=== PATIENT | female | born 1960 | race Caucasian/White ===

== ENCOUNTER 2023-06-28 14:29 | Inpatient (IN) | payer SELFPAY ==
[~2023-06-28] VITALS: Ht 160 cm; Wt 78.0 kg
[2023-06-28 14:43] VITALS: BP 134/84
[2023-06-28 15:32] LABS: BASO % 0.4 % (0.0-1.0); EOS % 0.1 % (1.0-4.0); HEMATOCRIT 33.8 % (37.0-47.0); LYMPH # 0.8 10*3/uL (1.3-4.4); LYMPH % 8.6 % (27.0-41.0); MEAN CELL VOLUME 87.1 fl (81.0-99.0); MEAN CORPUSCULAR HGB 27.3 pg (27.0-31.0); MEAN CORPUSCULAR HGB CONC 31.4 g/dl (33.0-37.0); MONO # 0.4 10*3/uL (0.1-1.0); MONO % 4.7 % (3.0-9.0); NEUT # 7.8 10*3/uL (2.3-7.9); NEUT % 85.9 % (47.0-73.0); PLATELET COUNT AUTOMATED 396 10*3/uL (130-400); RED BLOOD COUNT 3.88 10*6/uL (4.10-5.10); RED CELL DISTRI WIDTH 12.7 % (0-14.5); WHITE BLOOD COUNT 9.1 10*3/uL (4.8-10.8)
[2023-06-28 16:08] LABS: ALKALINE PHOSPHATASE 79 U/L (46-116); BUN 7 mg/dl (9-23); CHLORIDE 101 mmol/L (98-107); LIPASE 25 U/L (12-53); POTASSIUM 3.1 mmol/L (3.4-5.1); TOTAL PROTEIN 7.1 gm/dL (6.0-8.0)
[2023-06-28 16:11] LABS: SGPT/ALT < 7 U/L (5-49)
[2023-06-28 17:52] VITALS: BP 139/69
[2023-06-28 21:01] VITALS: BP 144/81
[2023-06-28] MEDS ORDERED: TOPCARE OMEPRAZ20 MG PO (23:15)
[2023-06-28] MEDS ORDERED: VENLAFAXINE HYD75 M3 PO (23:16)
[2023-06-28] MEDS ORDERED: LOPRESSOR25 MG PO (23:16)
[2023-06-28] MEDS ORDERED: BENICAR20 MG PO (23:17)
[2023-06-28 23:20] VITALS: BP 147/84
[2023-06-29] VITALS (10 sets, daily range): BP systolic 123–144; BP diastolic 57–78
[2023-06-29 06:02] LABS: ALKALINE PHOSPHATASE 67 U/L (46-116); BUN 7 mg/dl (9-23); CHLORIDE 107 mmol/L (98-107); CHOLESTEROL 97 mg/dL (<200); LDL CHOLESTEROL 50 mg/dL (9-159); POTASSIUM 3.6 mmol/L (3.4-5.1); TOTAL PROTEIN 5.9 gm/dL (6.0-8.0); TRIGLYCERIDES 93 mg/dl (<150)
[2023-06-29 06:03] LABS: SGPT/ALT < 7 U/L (5-49)
[2023-06-29 06:04] LABS: BASO # 0.1 10*3/uL (0.0-0.1); BASO % 0.5 % (0.0-1.0); EOS % 0.2 % (1.0-4.0); HEMATOCRIT 34.8 % (37.0-47.0); LYMPH # 0.7 10*3/uL (1.3-4.4); LYMPH % 5.2 % (27.0-41.0); MEAN CELL VOLUME 86.8 fl (81.0-99.0); MEAN CORPUSCULAR HGB 26.9 pg (27.0-31.0); MONO # 0.5 10*3/uL (0.1-1.0); MONO % 4.3 % (3.0-9.0); NEUT # 11.1 10*3/uL (2.3-7.9); NEUT % 89.2 % (47.0-73.0); PLATELET COUNT AUTOMATED 462 10*3/uL (130-400); RED BLOOD COUNT 4.01 10*6/uL (4.10-5.10); WHITE BLOOD COUNT 12.5 10*3/uL (4.8-10.8)
[2023-06-29 07:34] LABS: VITAMIN D, 25-HYDROXY 31.8 ng/mL (30-100)
[2023-06-30] VITALS: BP 109/67
[2023-06-30 06:01] LABS: ALKALINE PHOSPHATASE 58 U/L (46-116); BUN 7 mg/dl (9-23); CHLORIDE 103 mmol/L (98-107); POTASSIUM 3.7 mmol/L (3.4-5.1); TOTAL PROTEIN 5.7 gm/dL (6.0-8.0)
[2023-06-30 06:03] LABS: SGPT/ALT < 7 U/L (5-49)
[2023-06-30 06:12] LABS: BASO # 0.1 10*3/uL (0.0-0.1); BASO % 0.6 % (0.0-1.0); EOS # 0.1 10*3/uL (0.0-0.4); EOS % 1.4 % (1.0-4.0); HEMATOCRIT 30.5 % (37.0-47.0); LYMPH # 1.4 10*3/uL (1.3-4.4); LYMPH % 15.5 % (27.0-41.0); MEAN CELL VOLUME 88.9 fl (81.0-99.0); MEAN CORPUSCULAR HGB 26.5 pg (27.0-31.0); MEAN CORPUSCULAR HGB CONC 29.8 g/dl (33.0-37.0); MONO # 0.6 10*3/uL (0.1-1.0); MONO % 7.1 % (3.0-9.0); NEUT # 6.6 10*3/uL (2.3-7.9); NEUT % 74.8 % (47.0-73.0); PLATELET COUNT AUTOMATED 410 10*3/uL (130-400); RED BLOOD COUNT 3.43 10*6/uL (4.10-5.10); RED CELL DISTRI WIDTH 13.3 % (0-14.5); WHITE BLOOD COUNT 8.9 10*3/uL (4.8-10.8)
[2023-06-30 08:00] VITALS: BP 118/63
[2023-06-30 12:00] VITALS: BP 110/62
[2023-06-30 16:00] VITALS: BP 129/60
[2023-06-30 20:00] VITALS: BP 127/70
[2023-07-01] VITALS: BP 129/69
[2023-07-01 05:31] LABS: BUN < 5 mg/dl (9-23); CHLORIDE 97 mmol/L (98-107); POTASSIUM 3.6 mmol/L (3.4-5.1)
[2023-07-01 06:10] LABS: BASO % 0.4 % (0.0-1.0); EOS # 0.5 10*3/uL (0.0-0.4); EOS % 6.4 % (1.0-4.0); HEMATOCRIT 30.2 % (37.0-47.0); LYMPH # 1.3 10*3/uL (1.3-4.4); MEAN CORPUSCULAR HGB 27.1 pg (27.0-31.0); MEAN CORPUSCULAR HGB CONC 30.8 g/dl (33.0-37.0); MONO # 0.5 10*3/uL (0.1-1.0); MONO % 6.5 % (3.0-9.0); NEUT # 5.3 10*3/uL (2.3-7.9); NEUT % 68.9 % (47.0-73.0); PLATELET COUNT AUTOMATED 469 10*3/uL (130-400); RED BLOOD COUNT 3.43 10*6/uL (4.10-5.10); RED CELL DISTRI WIDTH 13.1 % (0-14.5); WHITE BLOOD COUNT 7.7 10*3/uL (4.8-10.8)
[2023-07-01 08:00] VITALS: BP 129/71
[2023-07-01 16:00] VITALS: BP 128/63
[2023-07-01 20:00] VITALS: BP 120/58
[2023-07-02] VITALS: BP 115/62
[2023-07-02 06:12] LABS: BASO % 0.7 % (0.0-1.0); EOS # 0.4 10*3/uL (0.0-0.4); EOS % 8.9 % (1.0-4.0); HEMATOCRIT 27.6 % (37.0-47.0); LYMPH # 0.8 10*3/uL (1.3-4.4); MEAN CELL VOLUME 88.5 fl (81.0-99.0); MEAN CORPUSCULAR HGB 26.6 pg (27.0-31.0); MEAN CORPUSCULAR HGB CONC 30.1 g/dl (33.0-37.0); MEAN PLATELET VOLUME 8.7 fl (9.6-12.3); MONO # 0.3 10*3/uL (0.1-1.0); MONO % 7.9 % (3.0-9.0); NEUT # 2.5 10*3/uL (2.3-7.9); NEUT % 60.8 % (47.0-73.0); PLATELET COUNT AUTOMATED 353 10*3/uL (130-400); RED BLOOD COUNT 3.12 10*6/uL (4.10-5.10); RED CELL DISTRI WIDTH 13.1 % (0-14.5)
[2023-07-02 06:29] LABS: CHLORIDE 103 mmol/L (98-107); POTASSIUM 3.9 mmol/L (3.4-5.1)
[2023-07-02 06:33] LABS: BUN < 5 mg/dl (9-23)
[2023-07-02 08:00] VITALS: BP 133/61
[2023-07-02] MEDS ORDERED: HYDROCODONE-AC1 EAC1 PO (11:37)
[2023-07-02 12:00] VITALS: BP 117/57
== END 2023-07-02 13:15 | disposition home or self-care (01) | DRG 329 ==
LOC: ED 14:29 → SDC 06-29 00:43 → ICCU 06-29 03:55 → 5E 07-01 18:19
PROVIDERS: Nurse Practitioner Family; Student in an Organized Health Care Education/Training Program; ADMIT Internal Medicine; ATTEND Internal Medicine
PROC: 0DBN0ZZ Excision of Sigmoid Colon, Open Approach (ICD-10-PCS; principal; 2023-06-29)
PROC: 0D1N0Z4 Bypass Sigmoid Colon to Cutaneous, Open Approach (ICD-10-PCS; 2023-06-29)
DX: K56.609 Unspecified intestinal obstruction, unspecified as to partial versus complete obstruction (principal); E43 Unspecified severe protein-calorie malnutrition; E87.1 Hypo-osmolality and hyponatremia; R65.10 Systemic inflammatory response syndrome (SIRS) of non-infectious origin without acute organ dysfunction; E87.6 Hypokalemia; D64.9 Anemia, unspecified; R73.9 Hyperglycemia, unspecified; R73.03 Prediabetes; D75.839 Thrombocytosis, unspecified; D72.829 Elevated white blood cell count, unspecified; F32.9 Major depressive disorder, single episode, unspecified; K21.9 Gastro-esophageal reflux disease without esophagitis; Z90.49 Acquired absence of other specified parts of digestive tract; Z68.30 Body mass index [BMI] 30.0-30.9, adult